=== PATIENT | male | born 1960 | race Caucasian/White ===

== ENCOUNTER 2017-05-28 12:53 | Emergency (ER) | payer OTHER ==
--- NOTE | 2017-05-28 13:18 | EDM.PDOC ---
ED HPI GENERAL MEDICAL PROBLEM - General Chief Complaint: Back Pain or Injury Stated Complaint: RT SIDE PAIN UNDER RIBCAGE Time Seen by Provider: 05/28/17 13:18 - History of Present Illness INITIAL COMMENTS - FREE TEXT/NARRATIVE: 57-year-old male presents emergency room with right-sided abdominal discomfort. This discomfort has been fairly steady for the last couple of weeks reminds him of when he said a kidney stone in the past. Patient denies any fevers or chills no nausea no vomiting. The patient has had constipation lately. He is on chronic opioids MS Contin 30 mg 3 times daily. This pain has been fairly constant for the last couple of weeks however it started more mildly perhaps 4- 5 weeks ago when he had intermittent twinges of pain at times the pain gets really quite severe at this point it is not too bad the patient did drive himself into the emergency room. The pain is pretty much in the right flank at times it will extend down to the right buttocks. The patient is noticed his urine getting darker over the last few days. Right Back Pain Score (Numeric/FACES): 9 - Related Data Allergies Allergy/AdvReac Type Severity Reaction Status Date / Time lidocane topical Allergy Redness Uncoded 05/28/17 13:11 Home Meds: Home Meds Ciprofloxacin HCl [Cipro] 500 mg PO Q12H #14 tablet 05/28/17 [Rx] DULoxetine [Cymbalta] 30 mg PO DAILY 05/28/17 [History] Famotidine [Pepcid] 20 mg PO DAILY 05/28/17 [History] Fluticasone Propionate [Flonase] 1 spray TOP ASDIRECTED 05/28/17 [History] Levothyroxine 125 mcg PO DAILY 05/28/17 [History] Lisinopril/Hydrochlorothiazide [Lisinopril-Hctz 20-12.5 mg Tab] 1 tab PO DAILY 05/28/17 [History] Morphine 30 mg PO Q8H 05/28/17 [History] Ondansetron [Zofran] 4 mg PO DAILY 05/28/17 [History] Pramipexole Di-HCl [Mirapex] 0.25 mg PO BEDTIME 05/28/17 [History] SUMAtriptan [Imitrex] 50 mg PO ASDIRECTED 05/28/17 [History] atorvaSTATin [Lipitor] 80 mg PO DAILY 05/28/17 [History] buPROPion [Wellbutrin SR] 150 mg PO DAILY 05/28/17 [History] Past Medical History Cardiovascular History: Reports: High Cholesterol, Hypertension Gastrointestinal History: Reports: GERD, Other (See Below) Other Gastrointestinal History: exploratory nicole abdome due to an accident Genitourinary History: Reports: Prostate Disorder Musculoskeletal History: Reports: Back Pain, Chronic Neurological History: Reports: Migraines Psychiatric History: Reports: Depression Endocrine/Metabolic History: Reports: Hypothyroidism Oncologic (Cancer) History: Reports: Prostate - Past Surgical History Male Surgical History: Reports: Other (See Below) Other Male Surgeries/Procedures: prostate surgery Social & Family History - Tobacco Use Smoking Status *Q: Never Smoker - Caffeine Use Caffeine Use: Reports: Coffee - Recreational Drug Use Recreational Drug Use: No ED ROS GENERAL - Review of Systems Review Of Systems: See Below Constitutional: Denies: Fever, Chills, Weakness HEENT: Reports: No Symptoms Respiratory: Reports: No Symptoms Cardiovascular: Reports: No Symptoms Endocrine: Reports: No Symptoms GI/Abdominal: Reports: Abdominal Pain, Constipation. Denies: Diarrhea : Reports: Flank Pain. Denies: Discharge, Dysuria, Frequency, Urgency Musculoskeletal: Reports: Back Pain (This is chronic) Skin: Reports: No Symptoms Psychiatric: Reports: No Symptoms Hematologic/Lymphatic: Reports: No Symptoms ED EXAM,LOWER BACK PAIN/INJURY - Physical Exam Exam: See Below Exam Limited By: No Limitations General Appearance: Alert, No Apparent Distress, Other (Urine sample sitting on the counter has a pink tinge to it) Head: Atraumatic, Normocephalic Neck: Normal Inspection, Supple, Non-Tender, Full Range of Motion. No: Lymphadenopathy (L), Lymphadenopathy (R) Respiratory/Chest: No Respiratory Distress, Lungs Clear, Normal Breath Sounds Cardiovascular: Regular Rate, Rhythm, No Edema, No Murmur GI/Abdominal: Normal Bowel Sounds, Soft, Other (He has some vague right-sided discomfort is not worsened with palpation. No rebound or guarding noted) Rectal (Males) Exam: Other (Rectal exam not done however the patient is not having any rectal pain or pain in this area) Extremities: Normal Inspection, No Pedal Edema Neurological: Alert, Normal Mood/Affect Course - Vital Signs Last Recorded V/S: Last Vital Signs Temp 36.6 C 10/21/17 13:16 Pulse 73 05/28/17 13:16 Resp 20 05/28/17 13:16 BP 156/101 H 05/28/17 13:16 Pulse Ox 100 05/28/17 13:16 - Orders/Labs/Meds Orders: Active Orders 24 hr Category Date Time Status Abdomen Pelvis wo Cont [CT] Stat Exams 05/28/17 13:50 Taken CULTURE URINE [RM] Stat Lab 05/28/17 15:48 Uncollected Lactated Ringers [Ringers, Lactated] 1,000 ml Med 05/28/17 14:00 Active IV ASDIRECTED Medication Orders Lactated Ringer's (Ringers, Lactated) 1,000 mls @ 125 mls/hr IV ASDIRECTED RANDI Last Admin: 05/28/17 14:27 Dose: 125 mls/hr Labs: Laboratory Tests 05/28/17 05/28/17 05/28/17 Range/Units 13:55 14:15 14:15 WBC 8.79 (4.23-9.07) K/mm3 RBC 5.04 (4.63-6.08) M/mm3 Hgb 15.2 (13.7-17.5) gm/L Hct 44.0 (40.1-51.0) % MCV 87.3 (79.0-92.2) fl MCH 30.2 (25.7-32.2) pg MCHC 34.5 (32.2-35.5) g/dl RDW Std Deviation 41.6 (35.1-43.9) fL Plt Count 235 (163-337) K/mm3 MPV 8.4 L (9.4-12.3) fl Neutrophils % (Manual) 69 H (40-60) % Band Neutrophils % 0 (0-10) % Lymphocytes % (Manual) 23 (20-40) % Atypical Lymphs % 0 % Monocytes % (Manual) 7 (2-10) % Eosinophils % (Manual) 1 (0.8-7.0) % Basophils % (Manual) 0 L (0.2-1.2) Platelet Estimate Adequate Plt Morphology Comment Normal RBC Morph Comment Normal Sodium 144 (136-145) mEq/L Potassium 3.8 (3.5-5.1) mEq/L Chloride 107 (98-107) mEq/L Carbon Dioxide 25 (21-32) mEq/L Anion Gap 15.8 H (5-15) BUN 20 H (7-18) mg/dL Creatinine 0.8 (0.7-1.3) mg/dL Est Cr Clr Drug Dosing 115.13 mL/min Estimated GFR (MDRD) > 60 (>60) mL/min BUN/Creatinine Ratio 25.0 H (14-18) Glucose 98 (74-106) mg/dL Calcium 9.0 (8.5-10.1) mg/dL Total Bilirubin 1.0 (0.2-1.0) mg/dL AST 27 (15-37) U/L ALT 35 (16-63) U/L Alkaline Phosphatase 74 (46-116) U/L Total Protein 7.3 (6.4-8.2) g/dl Albumin 3.6 (3.4-5.0) g/dl Globulin 3.7 gm/dL Albumin/Globulin Ratio 1.0 (1-2) Urine Color Dark yellow (Yellow) Urine Appearance Clear (Clear) Urine pH 6.0 (5.0-8.0) Ur Specific [place] > or = 1.030 (1.005-1.030) Urine Protein 2+ H (Negative) Urine Glucose (UA) Negative (Negative) Urine Ketones Trace H (Negative) Urine Occult Blood 2+ H (Negative) Urine Nitrite Negative (Negative) Urine Bilirubin 1+ H (Negative) Urine Urobilinogen 1.0 (0.2-1.0) Ur Leukocyte Esterase Negative (Negative) Urine RBC 10-20 H (0-5) /hpf Urine WBC 0-5 (0-5) /hpf Ur Epithelial Cells 0-5 (0-5) /hpf Urine Bacteria Few (FEW) /hpf Urine Mucus Not seen (FEW) /hpf Meds: Medications Generic Name Dose Route Start Last Admin Trade Name Freq PRN Reason Stop Dose Admin Lactated Ringer's 1,000 mls @ 125 mls/hr 05/28/17 14:00 05/28/17 14:27 Ringers, Lactated IV 125 mls/hr ASDIRECTED RANDI Administration Departure - Departure Time of Disposition: 15:57 Disposition: Home, Self-Care 01 Clinical Impression: Abdominal pain of unknown etiology, Microscopic hematuria - Discharge Information Prescriptions: Ciprofloxacin HCl [Cipro] 500 mg PO Q12H #14 tablet Referrals: PCP,None [Primary Care Provider] - Forms: ED Department Discharge Additional Instructions: Return to the emergency room with any questions problems or worsening symptoms. You been started on Cipro, this is an antibiotic take one twice daily until all gone. Follow-up in the hospital clinic on Tuesday or of this next week for recheck. [phone] Take your stool softeners daily. Today try 1 or 2 bottles of mag citrate, you can get this at the pharmacy. It will help you have a good bowel movement. - My Orders Last 24 Hours: My Active Orders 05/28/17 13:50 Abdomen Pelvis wo Cont [CT] Stat 05/28/17 14:00 Lactated Ringers [Ringers, Lactated] 1,000 ml IV ASDIRECTED 05/28/17 15:48 CULTURE URINE [RM] Stat - Assessment/Plan Last 24 Hours: My Active Orders 05/28/17 13:50 Abdomen Pelvis wo Cont [CT] Stat 05/28/17 14:00 Lactated Ringers [Ringers, Lactated] 1,000 ml IV ASDIRECTED 05/28/17 15:48 CULTURE URINE [RM] Stat
[2017-05-28] MEDS ORDERED: Lactated Ringers 1,000 ML IV SCH (14:00)
--- NOTE | 2017-05-29 17:11 | CT ---
CT abdomen and pelvis Technique: Multiple axial sections were obtained from above the dome of the diaphragm inferiorly through the pubic symphysis. Intravenous and oral contrast was not utilized. Study has been performed as a ureteral stone protocol. Comparison: No prior CT exam. Findings: Cyst is identified within the dome of the right lobe of the liver measuring approximately 1.5 cm. Second low-density lesion is noted within the left lobe of the liver most likely representing additional cyst measuring approximately 1.1 cm. No additional abnormality is appreciated within the liver. Spleen appears within normal limits. Visualized lung bases show nothing acute. Adrenal glands show no nodule. Pancreas is normal. Gallbladder shows no calcified gallstones. Aorta shows mild atherosclerotic calcification without aneurysmal dilatation. No retroperitoneal adenopathy or mesenteric abnormalities are seen. Appendix is seen and is normal. No pelvic mass or adenopathy is identified. Kidneys show no abnormal calcifications. No ureteral dilatation or ureteral stone is seen. Bone window settings were reviewed which show degenerative change at L4-L5 within the apophyseal joints causing mild spondylolisthesis with diffuse circumferential disc bulge. Findings cause fairly severe central canal stenosis. Small amount of epidural air is seen at this level compatible with degenerative apophyseal change showing vacuum phenomena. Mild degenerative change at L5-S1 due to posterior bulging disc and mild degenerative apophyseal change. Small fat-containing bilateral inguinal hernias are noted. Impression: 1. Incidental findings. No renal stone, ureteral dilatation or ureteral stone is seen. 2. No acute abnormality is appreciated. Diagnostic code #2 I agree with preliminary report issued by [facility] [employer] ([facility] preliminary report dictated on 05/28/17, 3:36 PM Central Time)
== END 2017-05-28 16:17 | disposition home or self-care (01) ==
LOC: JD.ED 12:53
DX: R10.9 Unspecified abdominal pain (principal); R31.29 Other microscopic hematuria; I10 Essential (primary) hypertension; K21.9 Gastro-esophageal reflux disease without esophagitis; E78.00 Pure hypercholesterolemia, unspecified; E03.9 Hypothyroidism, unspecified; Z79.899 Other long term (current) drug therapy; Z88.8 Allergy status to other drugs, medicaments and biological substances
CPT/HCPCS: 36415; 74176; 80053; 81001; 85025; 96360; 96361; 99284; J7120

== ENCOUNTER 2019-04-26 10:52 | Emergency (ER) | payer MEDICARE, OTHER ==
[2019-04-26] MEDS ORDERED: HYDROmorphone 1 MG/ML Syringe IVPUSH ONE (11:19)
[2019-04-26] MEDS ORDERED: Metoclopramide 10 MG/2 ML SDV IVPUSH ONE (11:20)
[2019-04-26] MEDS ORDERED: diphenhydrAMINE 50 MG/ML SDV IVPUSH ONE (11:20)
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
[2019-04-26] MEDS ORDERED: Sodium Chloride 0.9% 1,000 ML IV SCH (11:30)
[2019-04-26] MEDS ORDERED: Diatrizoate Meglumine/Diatrizoate Sodium 37% 120 ML Bottle PO ONE (13:41)
[2019-04-26] MEDS ORDERED: Iopamidol 612 MG/ML 100 ML Bottle IVPUSH ONE (13:41)
[2019-04-26] MEDS ORDERED: Sodium Chloride 0.9% 10 ML Syringe FLUSH PRN (13:41)
--- NOTE | 2019-04-26 15:14 | CT ---
CT chest Technique: Multiple axial sections through the chest were obtained. Intravenous contrast was utilized. Comparison: No prior chest imaging. Findings: No pericardial thickening is seen. Slightly prominent number of lymph nodes are seen within the pre and paratracheal regions. Largest lymph node measures 1.8 cm in size. No hilar abnormalities are seen. Mild dependent atelectasis is seen posteriorly within both lung bases. Small nodule is noted within the superior segment of the right lower lung measuring 6 mm. Small subpleural nodule is noted within the left upper lung measuring 4 mm. Lungs otherwise are clear. Bone window settings were reviewed which showed no discrete rib fracture. Degenerative endplate spurring is seen throughout the spine. Vertebral body heights are maintained. No definite acute osseous abnormality is seen. Impression: 1. Slightly prominent number of lymph nodes within the mediastinum although none of these lymph nodes are overly enlarged. Two small nodules within the chest. Recommend follow-up chest CT which can be performed without contrast to confirm stability of these findings. 2. Nothing acute is seen on CT study of the chest. Diagnostic code #9 CT abdomen and pelvis Technique: Multiple axial sections were obtained from above the dome of the diaphragm inferiorly through the pubic symphysis. Intravenous and oral contrast was utilized. Delayed images were obtained through the abdomen and pelvis. Comparison: Prior CT abdomen and pelvis performed as a ureteral noted. Findings: Low density cyst is noted within the right lobe of the liver measuring 1.2 cm. Abnormality is noted within the left lobe of liver which appears solid measuring 1.2 cm. These findings are noted on prior noncontrast exam and therefore likely benign. No new abnormality is seen within the liver. Spleen appears within normal limits. Kidneys show symmetric contrast enhancement. Small cyst noted within the left kidney. Delayed images show contrast within the ureters and bladder. Pancreas is within normal limits. Gallbladder contains no calcified gallstones. Aorta shows no aneurysm. Adrenal gland shows no nodule. No retroperitoneal adenopathy or mesenteric abnormalities are seen. No pelvic mass or adenopathy is seen. Slight bowel wall thickening is seen within the descending colon. Difficult to exclude a mild nonspecific colitis. No bowel dilatation or inflammatory change is seen. Bone window settings were reviewed which show mild diffuse degenerative change. No acute osseous abnormality is seen. Impression: 1. Bowel wall thickening ascending colon. This could be chronic or represent mild nonspecific colitis. 2. Other findings which are stable from previous exam and therefore felt to be benign. 3. Nothing acute is seen on CT study of the abdomen and pelvis. Diagnostic code #3
--- NOTE | 2019-04-26 15:14 | CT ---
CT thoracic spine Technique: Multiple axial sections were obtained through the thoracic spine. Reconstructed coronal and sagittal images were obtained. Findings: Diffuse anterior endplate osteophytes are noted throughout the thoracic spine which are confluent within the mid thoracic spine. Vertebral body heights are maintained. Mild scattered disc space narrowing is seen. Lucent line is noted within the right transverse process of L1 which most likely represents an old ununited fracture. No acute fracture line is seen within the thoracic spine. Disc space narrowing and spurring is noted within the visualized lower cervical spine. No abnormal subluxation is seen. Mild diffuse degenerative change is noted within the apophyseal joints. No discrete focal disc herniation is seen. No bony central or bony neural foraminal stenosis is seen. Impression: 1. Diffuse degenerative change. Nothing acute is appreciated on CT study of the thoracic spine. Diagnostic code #2
--- NOTE | 2019-04-29 13:46 | CR ---
Abdomen: Supine view of the abdomen was obtained. Comparison: Prior abdominal x-ray is not available. Bowel gas pattern is normal. Single calcification noted within the left renal pelvis compatible with phlebolith. Degenerative spurring is noted within the spine. Impression: 1. Nothing acute is seen on supine abdominal x-ray. Diagnostic code #2
== END 2019-04-26 16:30 | disposition home or self-care (01) ==
LOC: JD.ED 10:52
DX: M47.24 Other spondylosis with radiculopathy, thoracic region (principal); I10 Essential (primary) hypertension; E78.00 Pure hypercholesterolemia, unspecified; K21.9 Gastro-esophageal reflux disease without esophagitis; E03.9 Hypothyroidism, unspecified; F32.9 Major depressive disorder, single episode, unspecified; Z88.8 Allergy status to other drugs, medicaments and biological substances; Z79.899 Other long term (current) drug therapy; Z85.46 Personal history of malignant neoplasm of prostate
CPT/HCPCS: 36415; 71260; 72128; 74018; 74177; 80053; 81001; 83605; 83735; 83880; 85025; 85610; 85652; 86140; 96361; 96374; 96375; 99284; G0103; J1170; J1200; J2765; J7040; Q9963; Q9967

== ENCOUNTER 2021-09-20 08:25 | Emergency (ER) | payer OTHER ==
[2021-09-20] MEDS ORDERED: HYDROmorphone 0.5 MG/0.5 ML Syringe IVPUSH ONE (08:52)
[2021-09-20] MEDS ORDERED: Metoclopramide 10 MG/2 ML SDV IVPUSH ONE (08:53)
[2021-09-20] MEDS ORDERED: Dextrose 5%-0.9% NaCl 1,000 ML IV SCH (09:00)
[2021-09-20] MEDS ORDERED: Ketorolac 30 MG/ML SDV IVPUSH SCH (09:00)
[2021-09-20] MEDS ORDERED: HYDROmorphone 1 MG/ML Syringe IVPUSH ONE (10:53)
[2021-09-20] MEDS ORDERED: Magnesium Citrate Solution 296 ML Bottle PO ONE (11:22)
== END 2021-09-20 11:36 | disposition home or self-care (01) ==
LOC: JD.ED 08:25
DX: K59.01 Slow transit constipation (principal); M54.6 Pain in thoracic spine; M54.42 Lumbago with sciatica, left side; I10 Essential (primary) hypertension; K21.9 Gastro-esophageal reflux disease without esophagitis; E03.9 Hypothyroidism, unspecified; Z77.22 Contact with and (suspected) exposure to environmental tobacco smoke (acute) (chronic); Z88.4 Allergy status to anesthetic agent; Z79.899 Other long term (current) drug therapy
CPT/HCPCS: 36415; 74176; 81001; 85379; 96374; 96375; 96376; 99284; A9270; J1170; J1885; J2765; J7042